=== PATIENT | female | born 1985 ===

== ENCOUNTER 2023-11-14 09:52 | Outpatient (CLI) | payer BC, SELFPAY ==
--- OUTSIDE RECORDS SUMMARY | 2023-11-14 10:01 | XMS_ITS | Clinical Summary ---
Author Organization [place] Address [address] [facility] [place] [address] Care Team Providers Care Digital Ad Trafficker Name Role Phone Khushi Slater MD Primary Care Provid er Allergies No known active allergies Medications Medication Sig Dispensed Refills Start Date End Date Status VITAMIN D, CHOLECALCIFEROL, PO Take by mouth daily Activ e ibuprofen (ADVIL/MOTRIN) 200 MG tabletIndications: Status post dilatation and curettage Take 3 tablets (600 mg) by mouth every 6 hours as needed for pain (mild) 30 tablet 09/12/2017 Active levothyroxine (SYNTHROID/LEVOTHR OID) 50 MCG tablet Take 50 mcg by mouth daily Active ibuprofen (ADVIL/MOTRIN) 600 MG tabletIndications: Endometrial polyp Take 1 tablet (600 mg) by mouth every 6 hours as needed for other (mild and/or inflammatory pain) 30 tablet 09/11/2019 Active Active Problems Problem Noted Date Diagnosed Date Endometrial polyp 09/01/2019 Miscarriage 09/12/2017 Status post dilatation and curettage 09/12/2017 Anemia 09/12/2017 Vaginal bleeding 09/11/2017 Encounters Date Type Department Care Team Description 10/12/[address] [place] [address] [place] [address] Veronica Duffy MD from Last 3 Months Social History Tobacco Use Types Packs/Day Years Used Date Smoking Tobacco: Never Smokeless Tobacco: Never Alcohol Use Standard Drinks/Week Comments No 0 (1 standard drink = 0.6 oz pur e alcohol) Adolescent Education Answer Date Record ed Getting School Help Needed Not on file 12/01 Sex and Gender Information Value Date Recorded Sex Assigned at Not on file Gender Identity Not on file Sexual Orientation Not on file Last Filed Vital Signs Vital Sign Reading Time Taken Comments Blood Pressure 109/67 09/11/2019 2:00 PM CDT Pulse 60 09/11/2019 1:45 PM CDT Temperature 35.6 ??C (96 ??F) 09/11/2019 1:45 PM CDT Respiratory Rate 16 09/11/2019 2:00 PM CDT Oxygen Saturation 98% 09/11/2019 2:00 PM CDT Inhaled Oxygen Concentration - - Weight 71.6 kg (157 lb 14.4 oz) 020 10:20 AM CDT Height 165.1 cm (5' 5) 09/11/2019 10:2 0 AM CDT Body Mass Index 26.28 09/11/2019 10:20 AM CDT Plan of Treatment Not on file Advance Directives For more information, please contact: [phone] * Full Code (Latest Code Status on File) Date Activated Date Inactivated Comments 09/12/2017 5:32 PM 09/13/2017 12:05 PM Care Teams Digital Ad Trafficker Relationship Specialty Start Date End Date Khushi Slater MD [address] [place] [address] PCP - General wire drawing setter 09/11/17
--- OUTSIDE RECORDS SUMMARY | 2023-11-14 10:02 | XMS_ITS | Referral Summary ---
Author Organization [place] Address [address] [place] [address] Care Team Providers Care Sales Operations Specialist Name Role Phone Khushi Slater MD Primary Care Provid er Encounters Date Type Department Care Team Description 10/12/2023 Telephone [facility] [address] [facility] [address] [place] [address] Veronica Duffy MD from Last 3 Months Allergies No known active allergies Medications Medication [...] curettage 09/12/2017 Anemia 09/12/2017 Vaginal bleeding 09/11/2017 Social History Tobacco Use Types Packs/Day Years [...] Advance Directives For more information, please contact: [phone] * Full Code (Latest Code Status on File) Date Activated Date Inactivated Comments 09/12/2017 5:32 PM 09/13/2017 12:05 PM Care Teams Sales Operations Specialist Relationship Specialty Start Date End Date Khushi Slater MD [address] [place] [id number] PCP - General frame runner 09/11/17
--- OUTSIDE RECORDS SUMMARY | 2023-11-14 10:02 | XMS_ITS | Encounter Summary ---
Author Organization [place] Address [address] [place] [address] Care Team Providers Care Immigration Judge Name Role Phone Khushi Slater MD Primary Care Provid er Encounter Details Date Type Department Care Team (Late st Contact Info) Description 10/12/2023 Telephone [facility] [address] [place] [address] Veronica Duffy MD [address] [place] [address] Social History Tobacco Use Types Packs/Day Years [...] on file Sexual Orientation Not on file documented as of this encounter Miscellaneous Notes * Telephone Encounter - Lucy Nash - 10/12/2023 11:31 AM CDT Reason for Call: Appointment Request Patient requesting this type of appt: Preventive Requested provider: Khushi Slater Reason patient unable to be scheduled: Needs to be scheduled by clinic When does patient want to be seen/preferred time: eloy Comments: patient called and would like an appt with only Dr Veronica Duffy at [facility] Reason: Physical. Est new care. If no. Female at [place] preferred. Please contact patient. Thank you. Could we send this information to you in Discoverlyhart or would you prefer to receive a phone call?: Patient would prefer a phone call Okay to leave a detailed message?: Yes at Cell number on file: Telephone Information: Call taken on 10/12/2023 at 11:31 AM by Lucy Nash documented in this encounter Plan of Treatment Not on file documented as of this encounter Visit Diagnoses Not on filedocumented in this encounter Care Teams Immigration Judge Relationship Specialty Start Date End Date Khushi Slater MD [address] [facility] [address] [place] [address] PCP - General stonemason helper 09/11/17 documented as of this encounter
== END 2023-11-14 09:53 | disposition home or self-care (01) ==
PROVIDERS: PCP Family Medicine; Visit Provider Family Medicine
DX: E55.9 Vitamin D deficiency, unspecified (principal); N92.0 Excessive and frequent menstruation with regular cycle; D64.9 Anemia, unspecified; R53.83 Other fatigue; Z13.220 Encounter for screening for lipoid disorders; Z13.29 Encounter for screening for other suspected endocrine disorder
CPT/HCPCS: 80053; 80061; 82306; 82607; 82728; 83021; 83540; 83550; 84443

== ENCOUNTER 2023-12-14 08:10 | Outpatient (CLI) | payer BC, SELFPAY ==
--- OUTSIDE RECORDS SUMMARY | 2023-12-14 11:01 | XMS_ITS | Referral Summary ---
Author Organization [place] Address [address] [place] [address] Care Team Providers Care Lumber Sticker Name Role Phone Yajaira Woo MD Primary Care Provider + Encounters Date Type Department Care Team Description 12/04/2023 Telephone [facility] [place] [address] Jazmine Camp RN Results 12/03/2023 Travel 12/03/2023 8:50 AM CDT - 12/03/2023 9:50 AM CDT Emergency [facility] Emergency Dept [address] [place] [address] Cj Holcomb MD Microcytic anemia; Near syncope Discharge Disposition: Home or Self Care 10/12/2023 Telephone [facility] [address] [facility] [address] [place] [phone] Veronica Duffy MD from Last 3 Months [...] Sign Reading Time Taken Comments Blood Pressure 95/75 12/03/2023 9:45 AM CDT Pulse 63 12/03/2023 9:45 AM CDT Temperature 36.3 ??C (97.4 ??F) 12/03/2023 8:12 AM CD T Respiratory Rate 18 12/03/2023 8:12 AM CDT Oxygen Saturation 98% 12/03/2023 9:45 AM CDT Inhaled Oxygen Concentration - - Weight 70.7 kg (155 lb 13.8 oz) 12/03/2023 8:12 AM CDT Height 165.1 cm (5' 5) 12/03/2023 8:12 AM CDT Body Mass Index 25.94 12/03/2023 8:12 AM CDT Plan of Treatment Not on file Procedures Procedure Name Priority Date/Time Associated Diagnosis Comments HCG QUALITATIVE URINE STAT 12/03/2023 9:01 AM CDT ROUTINE UA WITH MICROSCOPIC REFLEX TO CULTURE STAT 12/03/2023 9:01 AM CDT EKG 12-LEAD, TRACING ONLY STAT 12/03/2023 8:18 AM CDT CBC WITH PLATELETS & DIFFERENTIAL STAT 12/03/2023 8:14 AM CDT RBC AND PLATELET MORPHOLOGY STAT 12/03/2023 8:14 AM CDT CBC WITH PLATELETS AND DIFFERENTIAL STAT 12/03/2023 8:14 AM CDT EXTRA BLOOD BANK PURPLE TOP TUBE STAT 12/03/2023 8:14 AM CDT EXTRA BLOOD BANK PURPLE TOP TUBE STAT 12/03/2023 8:14 AM CDT EXTRA RED TOP TUBE STAT 12/03/2023 8: 14 AM CDT EXTRA BLUE TOP TUBE STAT 12/03/2023 8 :14 AM CDT TROPONIN T, HIGH SENSITIVITY STAT 12/03/2023 8:14 AM CDT BASIC METABOLIC PANEL STAT 12/03/2023 8:14 AM CDT EXTRA TUBE STAT 12/03/2023 8:14 AM CDT from Last 3 Months Results * HCG qualitative urine (UPT) (12/03/2023 9:01 AM CDT) Pathologist [facility] hCG Urine Qualitative Negative Negative MISAEL 12/03/2023 9:19 AM CDT LABORATORY Comment:This test is for scr eening purposes. Results should be interpreted along with the clinical picture. Confirmation testing is available if warranted by ordering [id number], HCG Quantitative . Urine MID-STREAM URINE SPECIMEN / Unknown Non-blood Collection / Unknown 12/03/2023 9:01 AM CDT 12/03/2023 9:10 AM CDT Robi Valdez MD LAB - URINE ORDERABL ES [facility] [address] (1st floor, no room number) [place] [address], [facility] * (ABNORMAL) UA with Microscopic reflex to Culture (12/03/2023 9:01 AM CDT) Color Urine Straw Colorless, Straw, Light Yellow, Yellow 12/03/2023 9:41 AM CDT LABORATORY Appearance Urine Clear Clear 12/03/19 9:41 AM CDT LABORATORY Glucose Urine Negative Negative mg/dL 12/03/2023 9:41 AM CDT LABORATORY Bilirubin Urine Negative Negative 9:41 AM CDT LABORATORY Ketones Urine Negative Negative mg/dL 12/03/2023 9:41 AM CDT LABORATORY Specific Tow Urine 1.005 1.003 - 1.035 12/03/2023 9:41 AM CDT LABORATORY Blood Urine Negative Negative 12/03/2023 9:41 AM CDT LABORATORY pH Urine 7.0 5.0 - 7.0 12/03/2023 9:41 AM CDT LABORATORY Protein Albumin Urine Negative Negative mg/dL 12/03/2023 9:41 AM CDT LABORATORY Urobilinogen Urine Normal Normal, 2.0 mg/dL 12/03/2023 9:41 AM CDT LABORATORY Nitrite Urine Negative Negative 12/03/2023 9:41 AM CDT LABORATORY Leukocyte Esterase Urine Negative Negative 12/03/2023 9:41 AM CDT LABORATORY RBC Urine <1 <=2 /HPF 12/03/2023 9:41 AM CDT LABORATORY WBC Urine <1 <=5 /HPF 12/03/2023 9:41 AM CDT LABORATORY Squamous Epithelials Urine 2(H) <=1 /HPF 12/03/2023 9:41 AM CDT LABORATORY Urine MID-STREAM URINE SPECIMEN / Unknown Non-blood Collection / Unknown 12/03/2023 9:01 AM CDT 12/03/2023 9:10 AM CDT Narrative [facility] LABORATORY - 12/03/2023 9:41 AM CDT Urine Culture not indicated Robi Valdez MD LAB - URINE ORDERABL ES LABORATORY [facility] Acute Care Lab [address] [facility] Lab (1st floor, no room number) [place] [address], [facility] * EKG 12-lead, tracing only (12/03/2023 8:18 AM CDT) Systolic Blood Pressure mmHg RADIOLOGY RESULTS Diastolic Blood Pressure mmHg RADIOLOGY RESULTS Ventricular Rate 60 BPM RAD IOLOGY RESULTS Atrial Rate 60 BPM RADIOLOG Y RESULTS NE Interval 186 ms RADIOLOG Y RESULTS QRS Duration 78 ms RADIOLO GY RESULTS QT 398 ms RADIOLOGY RESULTS QTc 398 ms RADIOLOGY RESULTS P Acme 66 degrees RADIOLOGY RESULTS R AXIS 39 degrees RADIOLOGY RESULTS T Acme 30 degrees RADIOLOGY RESULTS Interpretation ECG Sinus rhythm Normal ECG No previous ECGs available Unconfirmed report - interpretation of this ECG is computer generated - see medical record for final interpretation Confirmed by - EMERGENCY ROOM, PHYSICIAN ([id number]), desk editor Gautam Durham ([id number]) on 12/03/2023 8:44:21 AM RADIOLOGY RESULTS 12/03/2023 8:18 AM CDT 12/03/2023 8:44 AM CDT Cj Holcomb MD ECG ORDERABLES RADIOLOGY RESULTS * Extra Blood Bank Purple Top Tube (12/03/2023 8:14 AM CDT) Only the most recent of2 resultswithin the time period is included. Hold Specimen [facility] 12/03/2023 9:31 AM CDT [facility] LABORATORY Blood BLOOD SPECIMEN / Unknown Venipuncture / Unknown 12/03/2023 8:14 AM CDT 12/03/2023 8:21 AM CDT Cj Holcomb MD LAB - BLOOD ORDER HARRY LABORATORY [facility] [address] Lab (1st floor, no room number) [place] [address], [facility] * Extra Red Top Tube (12/03/2023 8:14 AM CDT) Hold Specimen [facility] 12/03/2023 9:31 AM CDT LABORATORY Blood BLOOD SPECIMEN / Unknown Venipuncture / Unknown 12/03/2023 8:14 AM CDT 12/03/2023 8:22 AM CDT Cj Holcomb MD LAB - BLOOD ORDER [facility]ARR[facility] Lab [address] Lab (1st floor, no room number) [address] * Extra Blue Top Tube (12/03/2023 8:14 AM CDT) Hold Specimen [facility] 12/03/2023 9:31 AM CDT [facility] LABORATORY Blood BLOOD SPECIMEN / Unknown Venipuncture / Unknown 12/03/2023 8:14 AM CDT 12/03/2023 8:21 AM CDT Cj Holcomb MD LAB - BLOOD ORDER HARRY Performing Organization Address City/[facility]/ZIP Co de Phone Number [facility] Lab [address] Lab (1st floor, no room number) [address] * (ABNORMAL) RBC and Platelet Morphology (12/03/2023 8:14 AM CDT) RBC Morphology Confirmed RBC Indices 12/03/2023 11:35 AM CDT [facility] LAB[facility]AT[facility] Platelet Assessment Automated Count Confirmed. Platelet morphology is normal. Automated Count Confirmed. Platelet morphology is normal. MISAEL 12/03/2023 11:35 AM CDT [facility] LAB[facility]AT[facility] Elliptocytes Moderate(A) None Seen MISAEL 12/03/2023 11:35 AM CDT [facility] RBC Fragments Slight(A) None Seen MISAEL 12/03/2023 11:35 AM CDT [facility] LAB[facility] Target Cells Slight(A) None Seen MISAEL 12/03/2023 11:35 AM CDT [facility] Teardrop Cells Slight(A) None Seen MISAEL 12/03/2023 11:35 AM CDT [facility] Blood BLOOD SPECIMEN / Unknown Venipuncture / Unknown 12/03/2023 8:14 AM CDT 12/03/2023 8:22 AM CDT Cj Holcomb MD LAB - BLOOD ORDER [facility] LABORATORY [facility] [address] Lab (1st floor, no room number) [place] [address], [facility] * (ABNORMAL) CBC with platelets and differential (12/03/2023 8:14 AM CDT) WBC Count 7.3 4.0 - 11.0 10e3/uL 12/03/2023 11:35 AM CDT [facility] LAB[facility]ATORY RBC Count 4.82 3.80 - 5.20 10e6/uL 12/03/2023 11:35 AM CDT [facility] LAB[facility] Hemoglobin 9.2(L) 11.7 - 15.7 g/dL 12/03/2023 11:35 AM CDT [facility] LAB[facility] Hematocrit 33.0(L) 35.0 - 47.0 % 12/03/2023 11:35 AM CDT [facility] LAB[facility] MCV 69(L) 78 - 100 fL 12/03/2023 11:35 AM CDT [facility] MCH 19.1(L) 26.5 - 33.0 pg 12/03/2023 11:35 AM CDT [facility] MCHC 27.9(L) 31.5 - 36.5 g/dL 12/03/2023 11:35 AM CDT [facility] RDW 12/03/2023 11:35 AM CDT [facility] LAB[facility]AT[facility] Comment:Dimorphic Population -Unable to Calculate Platelet Count 255 150 - 450 10e3/uL 12/03/2023 11:35 AM CDT [facility] % Neutrophils 70 % 12/03/2023 11:35 AM CDT [facility] % Lymphocytes 23 % 12/03/2023 11:35 AM CDT [facility] % Monocytes 4 % 12/03/2023 11:35 AM CDT [facility] % Eosinophils 3 % 12/03/2023 11:35 AM CDT [facility] % Basophils 1 % 12/03/2023 11:35 AM CDT [facility] % Immature Granulocytes 0 % 12/03/2023 11:35 AM CDT [facility] LAB[facility] NRBCs per 100 WBC 0 <1 /100 024 11:35 AM CDT [facility] LAB[facility] Absolute Neutrophils 5.1 1.6 - 8.3 10e3/uL 12/03/2023 11:35 AM CDT [facility] LAB[facility] Absolute Lymphocytes 1.7 0.8 - 5.3 10e3/uL 12/03/2023 11:35 AM CDT [facility] LAB[facility] Absolute Monocytes 0.3 0.0 - 1.3 10e3/uL 12/03/2023 11:35 AM CDT [facility] LAB[facility] Absolute Eosinophils 0.2 0.0 - 0.7 10e3/uL 12/03/2023 11:35 AM CDT [facility] LAB[facility] Absolute Basophils 0.1 0.0 - 0.2 10e3/uL 12/03/2023 11:35 AM CDT [facility] LAB[facility] Absolute Immature Granulocytes 0.0 <=0.4 10e3/uL 12/03/2023 11:35 AM CDT [facility] LAB[facility]AT[facility] Absolute NRBCs 0.0 10e3/uL 12/03/2023 11:35 AM CDT [facility] Blood BLOOD SPECIMEN / Unknown Venipuncture / Unknown 12/03/2023 8:14 AM CDT 12/03/2023 8:22 AM CDT Cj Holcomb MD LAB - BLOOD ORDER [facility] LABORATORY [facility] [address] [facility] Lab (1st floor, no room number) [place] [address], [facility] * Troponin T, High Sensitivity (12/03/2023 8:14 AM CDT) Pathologist [facility] Troponin T, High Sensitivity <6 <=14 ng/L 12/03/2023 8:43 AM CDT [facility] LABORATORY Comment: Either a High Sensitivity Troponin T baseline (0 hours) value = 100 ng/L, or an increase in High Sensitivity Troponin T = 7 ng/L at 2 hours compared to 0 hours (2-0 hours), suggests myocardial injury, and urgent clinical attention is required. ?? If the 2-0 hours increase is <7 ng/L, a High Sensitivity Troponin T result above gender-specific reference ranges warrants further evaluation. Recommendations for further evaluation include correlation with clinical decision-making tool (e.g., HEART), a 3rd High Sensitivity Troponin T test 2 hours after the 2nd (a 20% change from baseline would represent concern), admission for observation, close PCC/cardiology follow-up, or urgent outpatient provocative testing. Blood BLOOD SPECIMEN / Unknown Venipuncture / Unknown 12/03/2023 8:14 AM CDT 12/03/2023 8:21 AM CDT Cj Holcomb MD LAB - BLOOD ORDER [facility] LABORATORY [facility] [address] Lab (1st floor, no room number) [place] [address] * (ABNORMAL) Basic metabolic panel (BMP) (12/03/2023 8:14 AM CDT) Sodium 137 135 - 145 mmol/L 12/03/2023 8:43 AM CDT LABORATORY Potassium 3.9 3.4 - 5.3 mmol/L 12/03/2023 8:43 AM CDT LABORATORY Chloride 103 98 - 107 mmol/L 12/03/2023 8:43 AM CDT LABORATORY Carbon Dioxide (CO2) 20(L) 22 - 29 mmol/L 12/03/2023 8:43 AM CDT LABORATORY Anion Gap 14 7 - 15 mmol/L 12/03/2023 8:43 AM CDT LABORATORY Urea Nitrogen 9.2 6.0 - 20.0 mg/dL 12/03/2023 8:43 AM CDT LABORATORY Creatinine 0.69 0.51 - 0.95 mg/dL 12/03/2023 8:43 AM CDT LABORATORY GFR Estimate >90 >60 mL/min/1.7 3m2 12/03/2023 8:43 AM CDT LABORATORY Comment:eGFR calculated usin g 2020 CKD-EPI equation. Calcium 8.6(L) 8.8 - 10.4 mg/dL 12/03/2023 8:43 AM CDT LABORATORY Comment:Reference intervals for this test were updated on 09/25/2023 to reflect our healthy population more accurately. There may be differences in the flagging of prior results with similar values performed with this method. Those prior results can be interpreted in the context of the updated reference intervals. Glucose 111(H) 70 - 99 mg/dL 12/03/2023 8:43 AM CDT LABORATORY Blood BLOOD SPECIMEN / Unknown Venipuncture / Unknown 12/03/2023 8:14 AM CDT 12/03/2023 8:21 AM CDT Cj Holcomb MD LAB - BLOOD ORDER HARRY [facility] [address] Lab (1st floor, no room number) [place] [address], [facility] from Last 3 Months Advance Directives For more information, please contact: [phone] * Full Code (Latest Code Status on File) Date Activated Date Inactivated Comments 09/12/2017 5:32 PM 09/13/2017 12:05 PM Care Teams Lumber Sticker Relationship Specialty Start Date End Date Yajaira Woo MD [facility] [address] [place] [address] PCP - General Family Medicine 12/03/23
--- OUTSIDE RECORDS SUMMARY | 2023-12-14 11:01 | XMS_ITS | Encounter Summary ---
Author Organization [place] Address [address] [place] [address] Care Team Providers Care Assistant Store Director Name Role Phone Khushi Slater MD Primary Care Provid er Yajaira Woo MD Primary Care Provider + Encounter Details Date Type Department Care Team (Late st Contact Info) Description 10/12/2023 Telephone [facility] [address] [place] [address] Veronica Duffy MD [address] [place] [address] Social History Tobacco Use Types [...] encounter Miscellaneous Notes * Telephone Encounter - CharityLucy - 10/12/2023 11:31 AM CDT Reason for Call: Appointment Request Patient requesting this type of appt: Preventive Requested provider: Khushi Slater Reason patient unable to be scheduled: Needs to be scheduled by clinic When does patient want to be seen/preferred time: eloy Comments: patient called and would like an appt with only Dr Veronica Duffy at [facility] Reason: Physical. Est new care. If no. [place] at [place] preferred. Please contact patient. Thank you. Could we send this information to you in EarLenshart or would you prefer to receive a [...] on filedocumented in this encounter Care Teams Assistant Store Director Relationship Specialty Start Date End Date Khushi Slater MD [address] [facility] [address] [place] [address] PCP - General shooter helper 09/11/17 12/02/23 Yajaira Woo MD [facility] [address] [place] [address] PCP - General Family Medicine 12/03/23 documented as of this encounter
--- OUTSIDE RECORDS SUMMARY | 2023-12-14 11:01 | XMS_ITS | Encounter Summary ---
Author Organization [place] Address [address] [place] [id number] Care Team Providers Care Director Of Health Care Marketing Name Role Phone Yajaira Woo MD Primary Care Provider + Reason for Visit * Reason Comments Hypotension Encounter Details Date Type Department Care Team (Late st Contact Info) Description 12/03/2023 8:50 AM CDT - 12/03/2023 9:50 AM CDT Emergency [facility] Emergency Dept [address] [place] [address] Cj Holcomb MD [facility] [address] [place], [place] [id number] Microcytic anemia; Near syncope Discharge Disposition: Home or Self Care Social History Tobacco Use Types Packs/Day Years [...] on file documented as of this encounter Last Filed Vital Signs Vital Sign Reading [...] Mass Index 25.94 12/03/2023 8:12 AM CDT documented in this encounter Discharge Instructions * Discharge Instructions* Cj Holcomb MD - 12/03/2023 9:43 AM CDT Discharge Instructions Syncope Syncope (fainting) is a sudden, short loss of consciousness (passing out spell). People will usually fall to the ground when they faint or slump over if seated. People may also shake when this happens, and it can sometimes be difficult to tell the difference between syncope and a seizure. At this time, your provider does not find a reason to suspect that your fainting spell is a sign of anything dangerous or life-threatening. However, sometimes the signs of serious illness do not show up right away. Generally, every Emergency Department visit should have a follow-up clinic visit with either a primary or a specialty clinic/provider. Please follow-up as instructed by your emergency provider today. Return to the Emergency Department if: You faint again. You have any significant bleeding. You have chest pain or a fast or irregular heartbeat. You feel short of breath. You cough up any blood. You have abdominal (belly) pain or unusual back pain. You have ongoing vomiting (throwing up) or diarrhea (loose stools). You have a black or tarry bowel movement, or blood in the stool or in your vomit. You have a fever over 101??F. You lose feeling or cannot move a part of your body or cannot talk normally. You are confused, have a headache, cannot see well, or have a seizure. DO NOT DRIVE. CALL 911 INSTEAD! What can I do to help myself? Follow any specific instructions that your provider discussed with you. If you feel light-headed, make sure to sit down right away, even if you have to sit on the floor. Follow up with your regular medical provider as discussed for further management. This may include lowering your blood pressure medications, insulin or other diabetic medications, checking your bloodsugar more frequently, and drinking more fluids, taking medicines for vomiting or diarrhea or getting up slower. If you were given a prescription for medicine here today, be sure to read all of the information (including the package insert) that comes with your prescription. This will include important information about the medicine, its side effects, and any warnings that you need to know about. The pharmacist who fills the prescription can provide more information and answer questions you may have about the medicine. If you have questions or concerns that the pharmacist cannot address, please call or return to the Emergency Department. Remember that you can always come back to the Emergency Department if you are not able to see your regular provider in the amount of time listed above, if you get any new symptoms, or if there is anything that worries you. * Attachments The following attachments cannot be sent through Care Everywhere. * Anemia: Iron Deficiency (Yemeni) * Menorrhagia (Y[place]i) documented in this encounter Medications at Time of Discharge Medication Sig Dispensed Refills Start Date End Date ibuprofen (ADVIL/MOTRIN) 200 MG tabletIndications:Stat us post dilatation and curettage Take 3 tablets (600 mg) by mouth every 6 hours as needed for pain (mild) 30 tablet 09/12/2017 ibuprofen (ADVIL/MOTRIN) 600 MG tabletIndications:Endo metrial polyp Take 1 tablet (600 mg) by mouth every 6 hours as needed for other (mild and/or inflammatory pain) 30 tablet 09/11/2019 levothyroxine (SYNTHROID/LEVOTHROID) 50 MCG tablet Take 50 mcg by mouth daily VITAMIN D, CHOLECALCIFEROL, PO Take by mouth daily documented as of this encounter ED Notes * Cj Holcomb MD - 12/03/2023 8:58 AM CDT Emergency Department Note History of Present Illness Chief Complaint Hypotension HPI Nicki Najera is a 38 year old female with a history of anemia who presents with dizziness and hypotension. She had a bowel movement this morning 3.5 hours ago and felt like she was blacking out andwas diaphoretic and dizzy. She felt this way while sitting down. No syncope, chest pain, or palpations. She feels shoulder discomfort and numbness in right foot. After 15 minutes she felt back to [facility]. She had a liquid IV and slept which improved symptoms. This is the third episode in four months. With these episodes she has diarrhea and then vomits 3-5 times and feels dizzy and unable toget up due to generalized weakness. Sleeping and liquid IV helps her return to normal. No diarrhea today. She has been taking iron supplements for two weeks and had loose stool. No vomiting today. Nounintentional loss, weight gain, or fevers. She has heavy menstrual cycles for 7-8 days and she uses 10 pads on her heaviest days. She is not currently menstruating. No recent bloody stools. She addsbecause of her iron she has black stool. She follows with [facility]. She has not seen her physicians in 2-3 years. She adds her hemoglobin was 7.7 19 days ago. Independent Historian None Review of External Notes None Past Medical History Medical History and Problem List Anemia Disorder of thyroid Endometrial polyp GERD PCOS Placenta previa Superficial thrombophlebitis of right upper extremity Medications Levothyroxine Surgical History section Dilation and curettage suction with ultrasound guidance Dilation and curettage, operative hysteroscopy with morcellator, combined Physical Exam Patient Vitals for the past 24 hrs: BP Temp Temp src Pulse Resp SpO2 Height Weight 12/03/23 0812 114/79 97.4 ??F (36.3 ??C) Temporal 70 18 99 % 1.651 m (5' 5) 70.7 kg (155 lb 13.8 oz) Physical Exam HEENT: Oropharynx is moist Eyes: Conjunctiva normal Neck: Supple, no meningismus. CV: Regular rate and rhythm. No murmurs, rubs or gallops. No unilateral leg swelling. 2+ radial pulses bilateral. No lower extremity edema. PULM: Clear to auscultation bilateral. No respiratory distress. Good air exchange. No rales or wheezing. No stridor. ABD: Soft, non-tender, non-distended. No pulsatile masses. No rebound, guarding or rigidity. MSK: No gross deformity to all four extremities. LYMPH: No cervical lymphadenopathy. NEURO: Alert & O x 3 Speech is clear. No tremor Good muscle tone, no atrophy. Skin: Warm, dry and intact. Psych: Mood is good and affect is appropriate. Diagnostics Lab Results Labs Ordered and Resulted from Time of ED Arrival to Time of ED Departure BASIC METABOLIC PANEL - Abnormal Result Value Sodium 137 Potassium 3.9 Chloride 103 Carbon Dioxide (CO2) 20 (*) Anion Gap 14 Urea Nitrogen 9.2 Creatinine 0.69 GFR Estimate >90 Calcium 8.6 (*) Glucose 111 (*) CBC WITH PLATELETS AND DIFFERENTIAL - Abnormal WBC Count 7.3 RBC Count 4.82 Hemoglobin 9.2 (*) Hematocrit 33.0 (*) MCV 69 (*) MCH 19.1 (*) MCHC 27.9 (*) RDW Platelet Count 255 NRBCs per 100 WBC 0 Absolute NRBCs 0.0 ROUTINE UA WITH MICROSCOPIC REFLEX TO CULTURE - Abnormal Color Urine Straw Appearance Urine Clear Glucose Urine Negative Bilirubin Urine Negative Ketones Urine Negative Specific [place] Urine 1.005 Blood Urine Negative pH Urine 7.0 Protein Albumin Urine Negative Urobilinogen Urine Normal Nitrite Urine Negative Leukocyte Esterase Urine Negative RBC Urine <1 WBC Urine <1 Squamous Epithelials Urine 2 (*) TROPONIN T, HIGH SENSITIVITY - Normal Troponin T, High Sensitivity <6 HCG QUALITATIVE URINE - Normal hCG Urine Qualitative Negative RBC AND PLATELET MORPHOLOGY EKG ECG taken at 0818, ECG read at 0945 Normal sinus rhythm Rate 60 bpm. TN interval 186 ms. QRS duration 78 ms. QT/QTc 398/398 ms. P-R-T axes 66 39 30. Independent Interpretation None ED Course Discussion of Management None ED Course ED Course as of 12/03/23 0947 SunDec 03, 2023 0931 I obtained the patient's history and examined as noted above. Additional Documentation None Medical Decision Making / Diagnosis [facility] Diagnoses: None MIPS None MDM Nicki Najera is a 38 year old female with a known history of iron deficiency is anemia secondary to manage menorrhagia presents with an episode of near syncope after having bowel movement. EKG is without dysrhythmia. She has no worsening of her anemia, acute electrolyte disturbance, hypoglycemia.She had no chest pain or shortness of breath to warrant concern for pulmonary embolism, aortic dissection, aortic aneurysm. No headache to suggest intracranial hemorrhage. Evaluation is most consistent with vasovagal process related to bowel movement. I believe this is exacerbated with her iron deficiency anemia. Patient was recently started on iron but has not seen gynecology to discuss treatment of her menorrhagia. Patient will be referred to gynecology for treatment options for menorrhagia. She is not currently menstruating at this time. Patient to follow-up with primary care physician to ensure resolution of symptoms. Disposition The patient was discharged. Diagnosis ICD-10-CM 1. Microcytic anemia D50.9 2. Near syncope R55 Scribe Disclosure: I Radha Ellis, am serving as a scribe at 9:02 AM on 12/03/2023 to document services personally performed by Cj Holcomb MD based on my observations and the provider's statements to me. Cj Holcomb MD Matthews, Jeremiah R, MD 12/03/23 1320 * Lilibeth Hodges, JEFFREY - 12/03/2023 8:12 AM CDT C/O hypotension and intermittent dizziness. Pt reports feeling as though she will black out with weakness, diaphoresis. Hx anemia and takes iron supplements. ABC in tact. A/OX4 documented in this encounter Plan of Treatment Not on file documented as of this encounter Procedures Procedure Name Priority Date/Time Associated Diagnosis Comments HCG QUALITATIVE URINE STAT 12/03/2023 9:01 AM CDT ROUTINE UA WITH MICROSCOPIC REFLEX TO CULTURE STAT 12/03/2023 9:01 AM CDT EKG 12-LEAD, TRACING ONLY STAT 12/03/2023 8:18 AM CDT EXTRA TUBE STAT 12/03/2023 8:14 AM CDT EXTRA BLOOD BANK PURPLE TOP TUBE STAT 12/03/2023 8:14 AM CDT EXTRA BLOOD BANK PURPLE TOP TUBE STAT 12/03/2023 8:14 AM CDT EXTRA RED TOP TUBE STAT 12/03/2023 8: 14 AM CDT EXTRA BLUE TOP TUBE STAT 12/03/2023 8 :14 AM CDT RBC AND PLATELET MORPHOLOGY STAT 12/03/2023 8:14 AM CDT CBC WITH PLATELETS AND DIFFERENTIAL STAT 12/03/2023 8:14 AM CDT TROPONIN T, HIGH SENSITIVITY STAT 12/03/2023 8:14 AM CDT CBC WITH PLATELETS & DIFFERENTIAL STAT 12/03/2023 8:14 AM CDT BASIC METABOLIC PANEL STAT 12/03/2023 8:14 AM CDT documented in this encounter Results * HCG qualitative urine (UPT) (12/03/2023 9:01 AM CDT) hCG Urine Qualitative Negative Negative MISAEL 12/03/2023 9:19 AM CDT [facility] Comment:This test is for scr eening purposes. Results should be interpreted along with the clinical picture. Confirmation testing is available if warranted by ordering [id number], HCG Quantitative . Urine MID-STREAM URINE SPECIMEN / Unknown Non-blood Collection / Unknown 12/03/2023 9:01 AM CDT 12/03/2023 9:10 AM CDT Robi Valdez MD LAB - URINE ORDERABL ES LABORAT[facility] Acute Care Lab [address] [facility] Lab (1st floor, no room number) [place] [address], [facility] * (ABNORMAL) UA with Microscopic reflex to Culture (12/03/2023 9:01 AM CDT) Color Urine Straw Colorless, Straw, Light Yellow, Yellow 12/03/2023 9:41 AM CDT LABORATORY Appearance Urine Clear Clear 12/03/19 9:41 AM CDT LABORATORY Glucose Urine Negative Negative mg/dL 12/03/2023 9:41 AM CDT [facility] Bilirubin Urine Negative Negative 9:41 AM CDT [facility] Ketones Urine Negative Negative mg/dL 12/03/2023 9:41 AM CDT [facility] Specific Wing Urine 1.005 1.003 - 1.035 12/03/2023 9:41 AM CDT [facility] Blood Urine Negative Negative 12/03/2023 9:41 AM CDT [facility] pH Urine 7.0 5.0 - 7.0 12/03/2023 9:41 AM CDT [facility] Protein Albumin Urine Negative Negative mg/dL 12/03/2023 9:41 AM CDT [facility] Urobilinogen Urine Normal Normal, 2.0 mg/dL 12/03/2023 9:41 AM CDT [facility] Nitrite Urine Negative Negative 12/03/2023 9:41 AM CDT [facility] Leukocyte Esterase Urine Negative Negative 12/03/2023 9:41 AM CDT [facility] RBC Urine <1 <=2 /HPF 12/03/2023 9:41 AM CDT [facility] WBC Urine <1 <=5 /HPF 12/03/2023 9:41 AM CDT [facility] Squamous Epithelials Urine 2(H) <=1 /HPF 12/03/2023 9:41 AM CDT [facility] Urine MID-STREAM URINE SPECIMEN / Unknown Non-blood Collection / Unknown 12/03/2023 9:01 AM CDT 12/03/2023 9:10 AM CDT Narrative [facility] - 12/03/2023 9:41 AM CDT Urine Culture not indicated Robi Valdez MD LAB - URINE ORDERABL ES LABORATORY [facility] Care Lab [address] Lab (1st floor, no room number) [place] [address], [facility] * EKG 12-lead, tracing only (12/03/2023 8:18 AM CDT) Systolic Blood Pressure mmHg RADIOLOGY RESULTS Diastolic Blood Pressure mmHg RADIOLOGY RESULTS Ventricular Rate 60 BPM RAD IOLOGY RESULTS Atrial Rate 60 BPM RADIOLOG Y RESULTS TN Interval 186 ms RADIOLOG Y RESULTS QRS Duration 78 ms RADIOLO GY RESULTS QT 398 ms RADIOLOGY RESULTS QTc 398 ms RADIOLOGY RESULTS P [place] 66 degrees RADIOLOGY RESULTS R AXIS 39 degrees RADIOLOGY RESULTS T [place] 30 degrees RADIOLOGY RESULTS Interpretation ECG Sinus rhythm Normal ECG No previous ECGs available Unconfirmed report - interpretation of this ECG is computer generated - see medical record for final interpretation Confirmed by - EMERGENCY ROOM, PHYSICIAN ([id number]), telegraph editor Gautam Durham ([id number]) on 12/03/2023 8:44:21 AM RADIOLOGY RESULTS 12/03/2023 8:18 AM CDT 12/03/2023 8:44 AM CDT Cj Holcomb MD ECG ORDERABLES RADIOLOGY RESULTS * (ABNORMAL) RBC and Platelet Morphology (12/03/2023 [...] Holcomb MD LAB - BLOOD ORDER HARRY [facility] Care Lab [address] Lab (1st floor, no room number) [place] [address], [facility] * (ABNORMAL) CBC with platelets and differential [...] Holcomb MD LAB - BLOOD ORDER HARRY [facility] Lab [address] [facility] Lab (1st floor, no room number) [address] * Extra Blood Bank Purple Top Tube (12/03/2023 8:14 AM CDT) Hold Specimen [facility] 12/03/2023 9:31 AM CDT [facility] Blood BLOOD SPECIMEN / Unknown Venipuncture / Unknown 12/03/2023 8:14 AM CDT 12/03/2023 8:21 AM CDT Cj Holcomb MD LAB - BLOOD ORDER HARRY [facility] Lab [address] Lab (1st floor, no room number) [address] * Extra Blood Bank Purple Top Tube (12/03/2023 8:14 AM CDT) Hold Specimen [facility] 12/03/2023 9:31 AM CDT [facility] Blood BLOOD SPECIMEN / Unknown Venipuncture / Unknown 12/03/2023 8:14 AM CDT 12/03/2023 8:22 AM CDT Cj Holcomb MD LAB - BLOOD ORDER HARRY [facility] Acute Care Lab [address] Lab (1st floor, no room number) [place] [address] * Extra Red Top Tube (12/03/2023 8:14 AM CDT) Hold Specimen [facility] 12/03/2023 9:31 AM CDT LABORATORY Blood BLOOD SPECIMEN / Unknown Venipuncture / Unknown 12/03/2023 8:14 AM CDT 12/03/2023 8:22 AM CDT Cj Holcomb MD LAB - BLOOD ORDER HARRY [facility] Acute Care Lab [address] Lab (1st floor, no room number) [place] [phone] * Extra Blue Top Tube (12/03/2023 8:14 AM CDT) Hold Specimen [facility] 12/03/2023 9:31 AM CDT LABORATORY Blood BLOOD SPECIMEN / Unknown Venipuncture / Unknown 12/03/2023 8:14 AM CDT 12/03/2023 8:21 AM CDT Cj Holcomb MD LAB - BLOOD ORDER HARRY [facility] Acute Care Lab [address] Lab (1st floor, no room number) [place] [phone] [place] [address] * Troponin T, High Sensitivity (12/03/2023 8:14 AM CDT) Troponin T, High Sensitivity <6 <=14 ng/L 12/03/2023 8:43 AM CDT LABORATORY Comment: Either a High Sensitivity Troponin [...] MD LAB - BLOOD ORDER HARRY LABORATORY [facility] Care Lab [address] [facility] Lab (1st floor, no room number) [place] [address], [facility] * (ABNORMAL) Basic metabolic panel (BMP) (12/03/2023 [...] MD LAB - BLOOD ORDER HARRY LABORATORY [facility] Lab [address] [facility] Lab (1st floor, no room number) [place] [address] documented in this encounter Visit Diagnoses Diagnosis Microcytic anemia Iron deficiency anemia, unspecified Near syncope Syncope and collapse documented in this encounter Care Teams Director Of Health Care Marketing Relationship Specialty Start Date End Date Yajaira Woo MD [facility] [address] [place] [address] PCP - General Family Medicine 12/03/23 documented as of this encounter
--- OUTSIDE RECORDS SUMMARY | 2023-12-14 11:01 | XMS_ITS | Encounter Summary ---
Author Organization [place] Address [address] [place] [address] Care Team Providers Care Machine Striper Name Role Phone Yajaira Woo MD Primary Care Provider + Encounter Details Date Type Department Care Team (Latest Contact Info) Description 12/03/2023 Travel Social History Tobacco Use Types Packs/Day Years [...] on file documented as of this encounter Plan of Treatment Not on file documented as of this encounter Visit Diagnoses Not on filedocumented in this encounter Care Teams Machine Striper Relationship Specialty Start Date End Date Yajaira Woo MD [facility] [address] [place] [address] PCP - General Family Medicine 12/03/23 documented as of this encounter
--- OUTSIDE RECORDS SUMMARY | 2023-12-14 11:01 | XMS_ITS | Encounter Summary ---
Author Organization [facility] Address [address] [place] [address] Care Team Providers Care Administrative Aide Name Role Phone Yajaira Woo MD Primary Care Provider + Reason for Visit * Reason Onset Date Comments Results 12/04/2023 Encounter Details Date Type Department Care Team (Late st Contact Info) Description 12/04/2023 Telephone [facility] Nurse Advisors [facility] [place] [address] Jazmine Camp RN Results Social History Tobacco Use Types Packs/Day Years [...] encounter Miscellaneous Notes * Telephone Encounter - Ajit Dickinson RN - 12/04/2023 1:19 PM CDT Patient returning call. Relayed below results. Advised patient notify her PCP of these results and that she was in the ED. Patient is able to see them in MyChart. Verbalized understanding. No additional questions. Ajit Dickinson RN [facility] Emergency Dept Lab Result RN * Telephone Encounter - Jazmine Camp RN - 12/04/2023 12:46 PM CDT [facility] Reason for call: Lab Result Notification Lab Result (including Rx patient on, if applicable). If culture, copy of lab report at bottom. Lab Result: RBC and platelet morphology Component Latest Ref Rng 12/03/2023 8:14 AM RBC Morphology Confirmed RBC Indices Platelet Morphology Automated Count Confirmed. Platelet morphology is normal. Automated Count Confirmed. Platelet morphology is normal. Elliptocytes None Seen Moderate ! RBC Fragments None Seen Slight ! Target Cells None Seen Slight ! Teardrop Cells None Seen Slight ! Legend: ! Abnormal Creatinine Level (mg/dl) Creatinine Date Value Ref Range Status 12/03/2023 0.69 0.51 - 0.95 mg/dL Final Creatinine clearance (ml/min), if applicable Serum creatinine: 0.69 mg/dL 12/03/23 0814 Estimated creatinine clearance: 108 mL/min Patient with history of anemia presented to [facility] ED on 12/03/2023 with dizziness and hypotension RN Recommendations/Instructions per [facility] ED lab result protocol: [facility] ED lab result protocol utilized: [facility] protocol Unable to reach patient/caregiver. Left voicemail message requesting a call back to [phone] between 9 a.m. and 5:30 p.m. for patient's ED/UC lab results. Letter pended to be sent via [employer]. Jazmine Camp RN documented in this encounter Plan of Treatment Not on file documented as of this encounter Visit Diagnoses Not on filedocumented in this encounter Care Teams Administrative Aide Relationship Specialty Start Date End Date Yajaira Woo MD [facility] [address] [address] PCP - General Family Medicine 12/03/23 documented as of this encounter
--- OUTSIDE RECORDS SUMMARY | 2023-12-14 11:01 | XMS_ITS | Clinical Summary ---
Author Organization [place] Address [address] [place] [address] Care Team Providers Care Stope Miner Name Role Phone Yajaira Woo MD Primary Care Provider + Allergies No known active allergies Medications Medication [...] Type Department Care Team Description 12/04/2023 Telephone [facility] Nurse Advisors [address] [place] [address] Jazmine Camp RN Results 12/03/2023 8:50 AM CDT - 12/03/2023 9:50 AM CDT Emergency [facility] Emergency Dept [address] [place] [address] Cj Holcomb MD Microcytic anemia; Near syncope Discharge Disposition: Home or Self Care 12/03/2023 Travel 10/12/2023 [facility] [address] [place] [phone] Veronica Duffy MD from Last 3 Months [...] 12/03/2023 8:12 AM CDT Plan of Treatment Health Maintenance Due Date Last Done Comments ADVANCE CARE PLANNING 1984 ANNUAL REVIEW OF HM ORDERS 1984 TSH W/FREE T4 REFLEX 1984 HIV SCREENING 05/11/1999 HEPATITIS C SCREENING 2002 HEPATITIS B IMMUNIZATION (1 of 3 - 19+ 3-dose series) 05/11/2003 PAP 2005 DTAP/TDAP/TD IMMUNIZATION (1 - Tdap) 2009 YEARLY PREVENTIVE VISIT 08/24/2021 08/25/19 21, 02/14/2019 PHQ-2 (once per calendar year) 2023 COVID-19 Vaccine ( - 2023-2 5 season) 2023 INFLUENZA VACCINE (#1) 2023 0, 02/04/2019 GLUCOSE 12/02/2026 12/03/2023, 09/13/2017, 09/12/2017 RSV VACCINE (1 - 1-dose 75+ series) 05/11/2059 HPV IMMUNIZATION Aged Out No longer e ligible based on patient's age to complete this topic MENINGITIS IMMUNIZATION Aged Out No l onger eligible based on patient's age to complete this topic Pneumococcal Vaccine: Pediatrics (0 to 5 Years) and At-Risk Patients (6 to 64 Years) Aged Out No longer eligible b ased on patient's age to complete this topic RSV MONOCLONAL ANTIBODY Aged Out No l onger eligible based on patient's age to complete this topic Procedures Procedure Name Priority Date/Time Associated Diagnosis [...] testing is available if warranted by ordering [id number], HCG Quantitative . Urine MID-STREAM URINE SPECIMEN / Unknown Non-blood Collection / Unknown 12/03/2023 9:01 AM CDT 12/03/2023 9:10 AM CDT Robi Valdez MD LAB - URINE ORDERABL ES LABORATORY [facility] Acute Care Lab [address] [facility] Lab (1st floor, no room number) [place] [address], [facility] * (ABNORMAL) UA with Microscopic reflex [...] mg/dL 12/03/2023 9:41 AM CDT LABORATORY Specific [place] Urine 1.005 1.003 - 1.035 12/03/2023 9:41 [...] MD LAB - URINE ORDERABL ES LABORATORY [facility] Acute Care Lab [address] [facility] Lab (1st floor, no room number) [place] [address] * EKG 12-lead, tracing only (12/03/2023 8:18 AM CDT) Systolic Blood Pressure mmHg RADIOLOGY RESULTS Diastolic Blood Pressure mmHg RADIOLOGY RESULTS Ventricular Rate 60 BPM RAD IOLOGY RESULTS Atrial Rate 60 BPM RADIOLOG Y RESULTS [place] Interval 186 ms RADIOLOG Y RESULTS QRS Duration 78 ms RADIOLO GY RESULTS QT 398 ms RADIOLOGY RESULTS QTc 398 ms RADIOLOGY RESULTS P [place] 66 degrees RADIOLOGY RESULTS R AXIS 39 degrees RADIOLOGY RESULTS T [place] 30 degrees RADIOLOGY RESULTS Interpretation ECG Sinus rhythm Normal ECG No previous ECGs available Unconfirmed report - interpretation of this ECG is computer generated - see medical record for final interpretation Confirmed by - EMERGENCY ROOM, PHYSICIAN ([id number]), editor dictionary Gautam Durham ([id number]) on 12/03/2023 8:44:21 AM RADIOLOGY RESULTS 12/03/2023 8:18 AM CDT 12/03/2023 8:44 AM CDT Cj Holcomb MD ECG ORDERABLES RADIOLOGY RESULTS * Extra Blood Bank Purple Top Tube (12/03/2023 8:14 AM CDT) Only the most recent of2 resultswithin the time period is included. Hold Specimen [facility] 12/03/2023 9:31 AM CDT [facility] LAB[facility] Blood BLOOD SPECIMEN / Unknown Venipuncture / Unknown 12/03/2023 8:14 AM CDT 12/03/2023 8:21 AM CDT Cj Holcomb MD LAB - BLOOD ORDER [facility] Lab [address] Lab (1st floor, no room number) [address] * Extra Red Top Tube (12/03/2023 8:14 AM CDT) Hold Specimen [facility] 12/03/2023 9:31 AM CDT [facility] LAB[facility]ATORY Blood BLOOD SPECIMEN / Unknown Venipuncture / Unknown 12/03/2023 8:14 AM CDT 12/03/2023 8:22 AM CDT Cj Holcomb MD LAB - BLOOD ORDER HARRY Performing Organization Address City/[facility]/ZIP Co de Phone Number [facility] Lab [address] Lab (1st floor, no room number) [address] * Extra Blue Top Tube (12/03/2023 8:14 AM CDT) Hold Specimen [facility] 12/03/2023 9:31 AM CDT RH LABORATORY Blood BLOOD SPECIMEN / Unknown Venipuncture / Unknown 12/03/2023 8:14 AM CDT 12/03/2023 8:21 AM CDT Cj Holcomb MD LAB - BLOOD ORDER HARRY LABORATORY [facility] Acute Care Lab [address] Lab (1st floor, no room number) [place] [address] * (ABNORMAL) RBC and Platelet Morphology (12/03/2023 [...] MD LAB - BLOOD ORDER HARRY LABORATORY [facility] Acute Care Lab [address] Lab (1st floor, no room number) [place] [address] * (ABNORMAL) CBC with platelets and [...] - BLOOD ORDER HARRY Performing Organization Address City/[facility]/ZIP Co de Phone Number [facility] Acute Care Lab [address] Lab (1st floor, no room number) [place] [phone] * Troponin T, High Sensitivity (12/03/2023 [...] - BLOOD ORDER HARRY Performing Organization Address City/[facility]/ZIP Co de Phone Number [facility] Acute Care Lab [address] Lab (1st floor, no room number) [place] [address], [facility] * (ABNORMAL) Basic metabolic panel (BMP) (12/03/2023 8:14 AM CDT) Sodium 137 135 - 145 mmol/L 12/03/2023 8:43 AM CDT LABORATORY Potassium 3.9 3.4 - 5.3 mmol/L 12/03/2023 8:43 AM CDT RH LABORATORY Chloride 103 98 - 107 mmol/L 12/03/2023 8:43 AM CDT RH LABORATORY Carbon Dioxide (CO2) 20(L) 22 - 29 mmol/L 12/03/2023 8:43 AM CDT RH LABORATORY Anion Gap 14 7 - 15 mmol/L 12/03/2023 8:43 AM CDT RH LAB[facility]ATORY Urea Nitrogen 9.2 6.0 - 20.0 mg/dL 12/03/2023 8:43 AM CDT RH LABORATORY Creatinine 0.69 0.51 - 0.95 mg/dL 12/03/2023 8:43 AM CDT RH LAB[facility]ORY GFR Estimate >90 >60 mL/min/1.7 3m2 12/03/2023 8:43 AM CDT [facility] LAB[facility]ORY Comment:eGFR calculated usin 2020 CKD-EPI equation. Calcium 8.6(L) 8.8 - 10.4 mg/dL 12/03/2023 8:43 AM CDT [facility] LAB[facility]ATORY Comment:Reference intervals for this test were updated on 09/25/2023 to reflect our healthy population more accurately. There may be differences in the flagging of prior results with similar values performed with this method. Those prior results can be interpreted in the context of the updated reference intervals. Glucose 111(H) 70 - 99 mg/dL 12/03/2023 8:43 AM CDT RH LAB[facility]ORY Blood BLOOD SPECIMEN / Unknown Venipuncture / Unknown 12/03/2023 8:14 AM CDT 12/03/2023 8:21 AM CDT Cj Holcomb MD LAB - BLOOD ORDER HARRY [facility] LABORATORY [facility] Acute Care Lab [address] Lab (1st floor, no room number) [place] [address], [facility] from Last 3 Months Advance Directives For more information, please contact: [phone] * Full Code (Latest Code Status on File) Date Activated Date Inactivated Comments 09/12/2017 5:32 PM 09/13/2017 12:05 PM Care Teams Stope Miner Relationship Specialty Start Date End Date Yajaira Woo MD [facility] & [address] [address] PCP - General Family Medicine 12/03/23
== END 2023-12-14 08:11 | disposition home or self-care (01) ==
LOC: NFLDREF 10:58
PROVIDERS: Visit Provider Family Medicine
DX: D50.9 Iron deficiency anemia, unspecified (principal); D50.0 Iron deficiency anemia secondary to blood loss (chronic); E53.8 Deficiency of other specified B group vitamins; R53.83 Other fatigue; E55.9 Vitamin D deficiency, unspecified; R71.8 Other abnormality of red blood cells
CPT/HCPCS: 82728; 85045

== ENCOUNTER 2024-01-04 08:00 | Outpatient (CLI) | payer BC, SELFPAY ==
--- OUTSIDE RECORDS SUMMARY | 2024-01-05 14:34 | XMS_ITS | Encounter Summary ---
Author Organization [place] Address [address] [place] [address] Care Team Providers Care Certified Tower Climber Name Role Phone Yajaira Woo MD Primary Care Provider + Reason for Visit * Reason Comments Hypotension Encounter Details Date Type Department Care Team (Late st Contact Info) Description 12/03/2023 8:50 AM CDT - 12/03/2023 9:50 AM CDT Emergency [facility] Emergency Dept [address] [place] [address] Cj Holcomb MD [facility] [address] [place], [place] [phone] Microcytic anemia; Near syncope Discharge Disposition: Home or Self Care Social History Tobacco Use Types Packs/Day Years Used Date Smoking Tobacco: Never Smokeless Tobacco: Never Alcohol Use Standard Drinks/Week Comments No 0 (1 standard drink = 0.6 oz pur e alcohol) Adolescent Education Answer Date Record ed Getting School Help Needed Not on file 12/01 Comments Unknown Sex and Gender Information Value Date Recorded Sex Assigned at Not on file Legal Sex Female 10:18 PM CDT Gender Identity Not on file Sexual Orientation [...] through Care Everywhere. * Anemia: Iron Deficiency (Frisian) * Menorrhagia (Frisian) documented in this encounter Medications at Time of Discharge ibuprofen (ADVIL/MOTRIN) 200 MG tabletIndication s:Status post dilatation and curettage Take 3 tablets (600 mg) by mouth every 6 hours as needed for pain (mild) 30 tablet 09/12/2017 ibuprofen (ADVIL/MOTRIN) 600 MG tabletIndication s:Endometrial polyp Take 1 tablet (600 mg) by mouth every 6 hours as needed for other (mild and/or inflammatory pain) 30 tablet 09/11/2019 levothyroxine (SYNTHROID/LEVOT HROID) 50 MCG tablet Take 50 mcg by [...] After 15 minutes [facility] She had a liquid IV and slept [...] Bilirubin Urine Negative Ketones Urine Negative Specific [place] Urine 1.005 Blood Urine Negative pH Urine [...] 0945 Normal sinus rhythm Rate 60 bpm. [place] interval 186 ms. QRS duration 78 ms. QT/QTc 398/398 ms. P-R-T axes 66 39 30. Independent Interpretation None ED Course Discussion of Management None ED Course ED Course as of 12/03/23 0947 SunDec 03, 2023 0931 I obtained the patient's history and examined as noted above. Additional Documentation None Medical Decision Making / Diagnosis [facility] Diagnoses: None MIPS None MDM [...] D50.9 2. Near syncope R55 Scribe Disclosure: I, Radharodney Ellis, am serving as a scribe at 9:02 AM on 12/03/2023 to document services personally performed by Cj Holcomb MD based on my observations and the provider's statements to me. Cj Holcomb MD Matthews, Jeremiah R, MD 12/03/23 1320 * Lilibeth Hodges RN - 12/03/2023 8:12 AM CDT C/O hypotension [...] testing is available if warranted by ordering [id number], HCG Quantitative . Urine MID-STREAM URINE SPECIMEN / Unknown Non-blood Collection / Unknown 12/03/2023 9:01 AM CDT 12/03/2023 9:10 AM CDT Robi Valdez MD LAB - URINE ORDERABLES Final Result LABORATORY [facility] Acute Care Lab [address] [facility] Lab (1st floor, no room number) [place] [address], [facility] * (ABNORMAL) UA with Microscopic reflex to Culture (12/03/2023 9:01 AM CDT) Color Urine Straw Colorless, Straw, Light Yellow, Yellow 12/03/2023 9:41 AM CDT LABORATORY Appearance Urine Clear Clear 09/23/20 24 9:41 AM CDT RH LABORATORY Glucose Urine Negative Negative mg/dL 12/03/2023 9:41 AM CDT RH LABORATORY Bilirubin Urine Negative Negative 9:41 AM CDT RH LABORATORY Ketones Urine Negative Negative mg/dL 12/03/2023 9:41 AM CDT RH LABORATORY Specific [place] Urine 1.005 1.003 - 1.035 12/03/2023 9:41 [...] 9:41 AM CDT Urine Culture not indicated us Robi Valdez MD LAB - URINE ORDERABLES Final Result LABORATORY [facility] Acute Care Lab [address] Lab (1st floor, no room number) [place] [address], [facility] * EKG 12-lead, tracing only (12/03/2023 8:18 AM CDT) Systolic Blood Pressure mmHg RADIOLOGY RESULTS Diastolic Blood Pressure mmHg RADIOLOGY RESULTS Ventricular Rate 60 BPM RAD IOLOGY RESULTS Atrial Rate 60 BPM RADIOLOG Y RESULTS [place] Interval 186 ms RADIOLOG Y RESULTS QRS Duration 78 ms RADIOLO GY RESULTS QT 398 ms RADIOLOGY RESULTS QTc 398 ms RADIOLOGY RESULTS P [place] 66 degrees RADIOLOGY RESULTS R AXIS 39 degrees RADIOLOGY RESULTS T [place] 30 degrees RADIOLOGY RESULTS Interpretation ECG Sinus rhythm Normal ECG No previous ECGs available Unconfirmed report - interpretation of this ECG is computer generated - see medical record for final interpretation Confirmed by - EMERGENCY ROOM, PHYSICIAN ([id number]), video editor Gautam Durham ([id number]) on 12/03/2023 8:44:21 AM RADIOLOGY RESULTS 12/03/2023 8:18 AM CDT 12/03/2023 8:44 AM CDT us Cj Holcomb MD ECG ORDERABLES Edited Re sult - Final RADIOLOGY RESULTS * (ABNORMAL) RBC and Platelet Morphology (12/03/2023 8:14 AM CDT) RBC Morphology Confirmed RBC Indices 12/03/2023 11:35 AM CDT RH LABORATORY Platelet Assessment Automated Count Confirmed. Platelet morphology is normal. Automated Count Confirmed. Platelet morphology is normal. MSIAEL 12/03/2023 11:35 AM CDT RH LABORATORY Elliptocytes [...] CDT Cj Holcomb MD LAB - BLOOD ORDERABLES Fi nal Result RH LABORATORY [facility] Acute Care Lab [address] Lab (1st floor, no room number) [place] [address], [place] * (ABNORMAL) CBC with platelets and differential (12/03/2023 8:14 AM CDT) [facility] Signature WBC Count 7.3 4.0 - 11.0 10e3/uL [...] CDT Cj Holcomb MD LAB - BLOOD ORDERABLES Fi nal Result [facility] Lab [address] Lab (1st floor, no room number) [address] * Extra Blood Bank Purple Top Tube (12/03/2023 8:14 AM CDT) Hold Specimen [facility] 12/03/2023 9:31 AM CDT RH LABORATORY Blood BLOOD SPECIMEN / Unknown Venipuncture / Unknown 12/03/2023 8:14 AM CDT 12/03/2023 8:21 AM CDT Cj Holcomb MD LAB - BLOOD ORDERABLES Fi nal Result [facility] Lab [address] Lab (1st floor, no room number) [address] * Extra Blood Bank Purple Top Tube (12/03/2023 8:14 AM CDT) Hold Specimen [facility] 12/03/2023 9:31 AM CDT RH LABORATORY Blood BLOOD SPECIMEN / Unknown Venipuncture / Unknown 12/03/2023 8:14 AM CDT 12/03/2023 8:22 AM CDT us Cj Holcomb MD LAB - BLOOD ORDERABLES Fi nal Result [facility] Care Lab [address] Lab (1st floor, no room number) [address] [place] [address] * Extra Red Top Tube (12/03/2023 8:14 AM CDT) Hold Specimen [facility] 12/03/2023 9:31 AM CDT LABORATORY Blood BLOOD SPECIMEN / Unknown Venipuncture / Unknown 12/03/2023 8:14 AM CDT 12/03/2023 8:22 AM CDT us Cj Holcomb MD LAB - BLOOD ORDERABLES Fi nal Result Performing Organization Address City/[facility]/ZIP Co de Phone Number [facility] Lab [address] Lab (1st floor, no room number) [place] [phone] [place] [address] * Extra Blue Top Tube (12/03/2023 8:14 AM CDT) Hold Specimen [facility] 12/03/2023 9:31 AM CDT LABORATORY Blood BLOOD SPECIMEN / Unknown Venipuncture / Unknown 12/03/2023 8:14 AM CDT 12/03/2023 8:21 AM CDT Cj Holcomb MD LAB - BLOOD ORDERABLES Fi nal Result [facility] Lab [address] Lab (1st floor, no room number) [address] [place] [address] * Troponin T, High Sensitivity (12/03/2023 8:14 AM CDT) Pathologist [facility] Troponin T, High Sensitivity <6 <=14 ng/L [...] 8:14 AM CDT 12/03/2023 8:21 AM CDT us Cj Holcomb MD LAB - BLOOD ORDERABLES Fi nal Result LABORATORY [facility] Acute Care Lab [address] [facility] Lab (1st floor, no room number) [place] [address], [facility] * (ABNORMAL) Basic metabolic panel (BMP) [...] 8:43 AM CDT RH LABORATORY Comment:eGFR calculated us2020 CKD-EPI equation. Calcium 8.6(L) 8.8 - 10.4 [...] CDT Cj Holcomb MD LAB - BLOOD ORDERABLES Fi nal Result LABORATORY [facility] Acute Care Lab [address] Lab (1st floor, no room number) [place] [address], [facility] documented in this encounter Visit Diagnoses Diagnosis Microcytic anemia Iron deficiency anemia, unspecified Near syncope Syncope and collapse documented in this encounter Care Teams Certified Tower Climber Relationship Specialty Start Date End Date Yajaira Woo MD [facility] & [address] [address] PCP - General Family Medicine 12/03/23 documented as of this encounter
--- OUTSIDE RECORDS SUMMARY | 2024-01-05 14:34 | XMS_ITS | Encounter Summary ---
Author Organization [place] Address [address] [place] [address] Care Team Providers Care Executive Manager Name Role Phone Khushi Slater MD Primary Care Provid er Yajaira Woo MD Primary Care Provider + Encounter Details Date Type Department Care Team (Late st Contact Info) Description 10/12/2023 Telephone [facility] [address] [place] [address] Veronica Duffy MD [address] [place] [address] Social History Tobacco Use Types [...] appt with only Dr Veronica Duffy at [facility] Reason: Physical. Est new care. If no. Female at [place] preferred. Please contact patient. Thank you. Could we send this information to you in [employer] or would you prefer to receive a [...] on filedocumented in this encounter Care Teams Executive Manager Relationship Specialty Start Date End Date Khushi Slater MD [address] [facility] [address] [address] PCP - General hand roller engraver 09/11/17 12/02/23 Yajaira Woo MD [facility] [address] [place] [address] PCP - General Family Medicine 12/03/23 documented as of this encounter
--- OUTSIDE RECORDS SUMMARY | 2024-01-05 14:34 | XMS_ITS | Referral Summary ---
Author Organization [place] Address [address] [place] [address] Care Team Providers Care Diving Instructor Name Role Phone Yajaira Woo MD Primary Care Provider + Encounters Date Type Department Care Team Description 12/04/2023 Telephone [facility] Nurse Advisors [facility] [place] [address] Jazmine Camp RN Results 12/03/2023 Travel 12/03/2023 8:50 AM CDT - 12/03/2023 9:[address] [facility] Emergency Dept [address] [place] [address] Cj Holcomb MD Microcytic anemia; Near syncope Discharge Disposition: Home or Self Care 10/12/2023 Telephone [facility] [address] [place] [phone] Veronica Duffy MD from Last 3 Months Allergies No known active allergies Medications VITAMIN D, CHOLECALCIFEROL , PO Take by mouth daily Active ibuprofen (ADVIL/MOTRIN) 200 MG tabletIndicatio ns:Status post dilatation and curettage Take 3 tablets (600 mg) by mouth every 6 hours as needed for pain (mild) 30 tablet 8 Active levothyroxine (SYNTHROID/LEVO THROID) 50 MCG tablet Take 50 mcg by mouth daily Active ibuprofen (ADVIL/MOTRIN) 600 MG tabletIndicatio ns:Endometrial polyp Take 1 tablet (600 mg) by mouth every 6 hours as needed for other (mild and/or inflammatory pain) 30 tablet 0 Active Active Problems Problem Noted Date Diagnosed [...] testing is available if warranted by ordering [id number], HCG Quantitative . Urine MID-STREAM URINE SPECIMEN / Unknown Non-blood Collection / Unknown 12/03/2023 9:01 AM CDT 12/03/2023 9:10 AM CDT Robi Valdez MD LAB - URINE ORDERABLES Final Result LABORATORY [facility] Acute Care Lab [address] Lab (1st floor, no room number) [place] [address], [place] * (ABNORMAL) UA with Microscopic reflex to Culture (12/03/2023 9:01 AM CDT) Color Urine Straw Colorless, Straw, Light Yellow, Yellow 12/03/2023 9:41 AM CDT LABORATORY Appearance Urine Clear Clear 12/03/19 9:41 AM CDT LABORATORY Glucose Urine Negative Negative mg/dL 12/03/2023 9:41 AM CDT LABORATORY Bilirubin Urine Negative Negative 9:41 AM CDT LABORATORY Ketones Urine Negative Negative mg/dL 12/03/2023 9:41 AM CDT LABORATORY Specific [place] Urine 1.005 1.003 - 1.035 12/03/2023 9:41 [...] AM CDT 12/03/2023 9:10 AM CDT Narrative LABORATORY - 12/03/2023 9:41 AM CDT Urine Culture not indicated us Robi Valdez MD LAB - URINE ORDERABLES Final Result LABORATORY [facility] Acute Care Lab [address] Lab (1st floor, no room number) [place] [address] * EKG 12-lead, tracing only (12/03/2023 8:18 AM CDT) Systolic Blood Pressure mmHg RADIOLOGY RESULTS Diastolic Blood Pressure mmHg RADIOLOGY RESULTS Ventricular Rate 60 BPM RAD IOLOGY RESULTS Atrial Rate 60 BPM RADIOLOG Y RESULTS NM Interval 186 ms RADIOLOG Y RESULTS QRS Duration 78 ms RADIOLO GY RESULTS QT 398 ms RADIOLOGY RESULTS QTc 398 ms RADIOLOGY RESULTS P [place] 66 degrees RADIOLOGY RESULTS R AXIS 39 degrees RADIOLOGY RESULTS T [place] 30 degrees RADIOLOGY RESULTS Interpretation ECG Sinus rhythm Normal ECG No previous ECGs available Unconfirmed report - interpretation of this ECG is computer generated - see medical record for final interpretation Confirmed by - EMERGENCY ROOM, PHYSICIAN ([id number]), website/blog editor Gautam Durham ([id number]) on 12/03/2023 8:44:21 AM RADIOLOGY RESULTS 12/03/2023 8:18 AM CDT 12/03/2023 8:44 AM CDT Cj Holcomb MD ECG ORDERABLES Edited Re sult - Final RADIOLOGY RESULTS * Extra Blood Bank Purple Top Tube (12/03/2023 8:14 AM CDT) Only the most recent of2 resultswithin the time period is included. [facility] Signature Hold Specimen [facility] 12/03/2023 9:31 AM CDT [facility] LABORATORY Blood BLOOD SPECIMEN / Unknown Venipuncture / Unknown 12/03/2023 8:14 AM CDT 12/03/2023 8:21 AM CDT Cj Holcomb MD LAB - BLOOD ORDERABLES Fi nal Result LABORATORY [facility] Acute Care Lab [address] Lab (1st floor, no room number) [place] [address], [facility] * Extra Red Top Tube (12/03/2023 8:14 AM CDT) Hold Specimen [facility] 12/03/2023 9:31 AM CDT RH LABORATORY Blood BLOOD SPECIMEN / Unknown Venipuncture / Unknown 12/03/2023 8:14 AM CDT 12/03/2023 8:22 AM CDT Cj Holcomb MD LAB - BLOOD ORDERABLES Fi nal Result LABORATORY [facility] Care Lab [address] Lab (1st floor, no room number) [address] * Extra Blue Top Tube (12/03/2023 8:14 AM CDT) Hold Specimen [facility] 12/03/2023 9:31 AM CDT RH LABORATORY Blood BLOOD SPECIMEN / Unknown Venipuncture / Unknown 12/03/2023 8:14 AM CDT 12/03/2023 8:21 AM CDT Cj Holcomb MD LAB - BLOOD ORDERABLES Fi nal Result [facility] Lab [address] Lab (1st floor, no room number) [address] * (ABNORMAL) RBC and Platelet Morphology [...] BLOOD ORDERABLES Fi nal Result RH LABORATORY [facility] Acute Care Lab [address] Lab (1st floor, no room number) [place] [address], [facility] * (ABNORMAL) CBC with platelets and differential (12/03/2023 8:14 AM CDT) [facility] WBC Count 7.3 4.0 - 11.0 10e3/uL [...] - 0.7 10e3/uL 12/03/2023 11:35 AM CDT LABORATORY Absolute Basophils 0.1 0.0 - 0.2 10e3/uL 12/03/2023 11:35 AM CDT RH LABORATORY Absolute Immature Granulocytes 0.0 <=0.4 10e3/uL 12/03/2023 11:35 AM CDT RH LABORATORY Absolute NRBCs 0.0 10e3/uL 12/03/2023 11:35 AM CDT LABORATORY Blood BLOOD SPECIMEN / Unknown Venipuncture / Unknown 12/03/2023 8:14 AM CDT 12/03/2023 8:22 AM CDT Cj Holcomb MD LAB - BLOOD ORDERABLES Fi nal Result LABORATORY [facility] Acute Care Lab [address] [facility] Lab (1st floor, no room number) [place] [address], [facility] * Troponin T, High Sensitivity (12/03/2023 8:14 AM CDT) [facility] Troponin T, High Sensitivity <6 <=14 ng/L [...] - BLOOD ORDERABLES Fi nal Result LABORATORY [facility] Acute Care Lab [address] [facility] Lab (1st floor, no room number) [place] [address] * (ABNORMAL) Basic metabolic panel (BMP) [...] 8:43 AM CDT LABORATORY Comment:eGFR calculated usin 2020 CKD-EPI equation. [...] - BLOOD ORDERABLES Fi nal Result LABORATORY [facility] Acute Care Lab [address] [facility] Lab (1st floor, no room number) [place] [address], [facility] from Last 3 Months Insurance [facility] [place] [address] [facility] Advance Directives For more information, please contact: [phone] * Full Code (Latest Code Status on File) Date Activated Date Inactivated Comments 09/12/2017 5:32 PM 09/13/2017 12:05 PM Care Teams Diving Instructor Relationship Specialty Start Date End Date Yajaira Woo MD [facility] & [address] [address] PCP - General Family Medicine 12/03/23
--- OUTSIDE RECORDS SUMMARY | 2024-01-05 14:34 | XMS_ITS | Encounter Summary ---
Author Organization [place] Address [address] [place] [address] Care Team Providers Care Radio Engineer Name Role Phone Yajaira Woo MD Primary [...] on filedocumented in this encounter Care Teams Radio Engineer Relationship Specialty Start Date End Date Yajaira Woo MD [facility] [address] [place] [address] PCP - General Family Medicine 12/03/23 documented as of this encounter
--- OUTSIDE RECORDS SUMMARY | 2024-01-05 14:34 | XMS_ITS | Encounter Summary ---
Author Organization [place] Address [address] [place] [address] Care Team Providers Care Food And Nutrition Services Supervisor Name Role Phone Yajaira Woo MD Primary Care Provider + Reason for Visit * Reason Onset Date Comments Results 12/04/2023 Encounter Details Date Type Department Care Team (Late st Contact Info) Description 12/04/2023 Telephone [facility] Nurse Advisors [facility] [place] [address] Jazmine Camp RN Results Social [...] understanding. No additional questions. Ajit Dickinson RN [facility] [employer] [facility] Emergency Dept Lab Result RN * Telephone Encounter - Jazmine Camp RN - 12/04/2023 12:46 PM CDT [facility] Reason for call: Lab Result Notification Lab [...] Patient with history of anemia presented to [facility] ED on 12/03/2023 with dizziness and hypotension RN Recommendations/Instructions per [facility] ED lab result protocol: [facility] ED lab result protocol utilized: [facility] [place] Unable to reach patient/caregiver. Left voicemail message requesting a call back to [phone] between 9 a.m. and 5:30 p.m. for patient's ED/UC lab results. Letter pended to be sent via [employer]. Jazmine Camp RN documented in this encounter Plan of Treatment Not on file documented as of this encounter Visit Diagnoses Not on filedocumented in this encounter Care Teams Food And Nutrition Services Supervisor Relationship Specialty Start Date End Date Yajaira Woo MD [facility] & [address] [address] PCP - General Family Medicine 12/03/23 documented as of this encounter
--- OUTSIDE RECORDS SUMMARY | 2024-01-05 14:34 | XMS_ITS | Clinical Summary ---
Author Organization [place] Address [address] [place] [address] Care Team Providers Care Associate Product Manager Name Role Phone Yajaira Woo MD Primary Care Provider + Allergies No known active allergies Medications VITAMIN [...] Type Department Care Team Description 12/04/2023 Telephone [facility] Nurse Advisors [address] [place] [address] Jazmine Camp RN Results 12/03/2023 8:50 AM CDT - 12/03/2023 9:50 AM CDT Emergency [facility] Emergency Dept [address] [place] [address] Cj Holcomb MD Microcytic anemia; Near syncope Discharge Disposition: Home or Self Care 12/03/2023 Travel 10/12/2023 Telephone [facility] [address] [place] [address] Veronica Duffy MD from Last 3 Months [...] 5 season) 2023 INFLUENZA VACCINE (#1) 2023 , 02/04/2019 GLUCOSE 12/02/2026 12/03/2023, 09/13/2017, 09/12/2017 RSV [...] testing is available if warranted by ordering [id number], HCG Quantitative . Urine MID-STREAM URINE SPECIMEN / Unknown Non-blood Collection / Unknown 12/03/2023 9:01 AM CDT 12/03/2023 9:10 AM CDT us Robi Valdez MD LAB - URINE ORDERABLES Final Result LABORATORY [facility] Acute Care Lab [address] [facility] Lab (1st floor, no room number) [place] [address] * (ABNORMAL) UA with Microscopic reflex to Culture (12/03/2023 9:01 AM CDT) Color Urine Straw Colorless, Straw, Light Yellow, Yellow 12/03/2023 9:41 AM CDT LABORATORY Appearance Urine Clear Clear 12/03/19 9:41 AM CDT RH LABORATORY Glucose Urine Negative Negative mg/dL 12/03/2023 9:41 AM CDT LABORATORY Bilirubin Urine Negative Negative 9:41 AM CDT RH LABORATORY Ketones Urine Negative Negative mg/dL 12/03/2023 9:41 AM CDT RH LABORATORY Specific [place] Urine 1.005 1.003 - 1.035 12/03/2023 9:41 [...] LAB - URINE ORDERABLES Final Result LABORATORY [facility] Acute Care Lab [address] Lab (1st floor, no room number) [place] [address], [facility] * EKG 12-lead, tracing only (12/03/2023 8:18 AM CDT) Systolic Blood Pressure mmHg RADIOLOGY RESULTS Diastolic Blood Pressure mmHg RADIOLOGY RESULTS Ventricular Rate 60 BPM RAD IOLOGY RESULTS Atrial Rate 60 BPM RADIOLOG Y RESULTS [place] Interval 186 ms RADIOLOG Y RESULTS QRS Duration 78 ms RADIOLO GY RESULTS QT 398 ms RADIOLOGY RESULTS QTc 398 ms RADIOLOGY RESULTS P [place] 66 degrees RADIOLOGY RESULTS R AXIS 39 degrees RADIOLOGY RESULTS T [place] 30 degrees RADIOLOGY RESULTS Interpretation ECG Sinus rhythm Normal ECG No previous ECGs available Unconfirmed report - interpretation of this ECG is computer generated - see medical record for final interpretation Confirmed by - EMERGENCY ROOM, PHYSICIAN ([id number]), newspaper or periodical editor Gautam Durham ([id number]) on 12/03/2023 8:44:21 AM RADIOLOGY RESULTS 12/03/2023 8:18 AM CDT 12/03/2023 8:44 AM CDT Cj Holcomb MD ECG ORDERABLES Edited Re sult - Final RADIOLOGY RESULTS * Extra Blood Bank Purple Top Tube (12/03/2023 8:14 AM CDT) Only the most recent of2 resultswithin the time period is included. Hold Specimen [facility] 12/03/2023 9:31 AM CDT RH LABORATORY Blood BLOOD SPECIMEN / Unknown Venipuncture / Unknown 12/03/2023 8:14 AM CDT 12/03/2023 8:21 AM CDT Cj Holcomb MD LAB - BLOOD ORDERABLES Fi nal Result Performing Organization Address [facility]/ZIP Co de Phone Number [facility] Care Lab [address] Lab (1st floor, no room number) [address] * Extra Red Top Tube (12/03/2023 8:14 AM CDT) Hold Specimen [facility] 12/03/2023 9:31 AM CDT RH LABORATORY Blood BLOOD SPECIMEN / Unknown Venipuncture / Unknown 12/03/2023 8:14 AM CDT 12/03/2023 8:22 AM CDT Cj Holcomb MD LAB - BLOOD ORDERABLES Fi nal Result [facility] [address] Lab (1st floor, no room number) [address] * Extra Blue Top Tube (12/03/2023 8:14 AM CDT) Hold Specimen [facility] 12/03/2023 9:31 AM CDT RH LABORATORY Blood BLOOD SPECIMEN / Unknown Venipuncture / Unknown 12/03/2023 8:14 AM CDT 12/03/2023 8:21 AM CDT Cj Holcomb MD LAB - BLOOD ORDERABLES Fi nal Result LABORATORY [facility] Acute Care Lab [address] Lab (1st floor, no room number) [place] [address] * (ABNORMAL) RBC and Platelet Morphology [...] - BLOOD ORDERABLES Fi nal Result LABORATORY [facility] Acute Care Lab [address] Lab (1st floor, no room number) [place] [address] * (ABNORMAL) CBC with platelets and [...] 0.0 <=0.4 10e3/uL 12/03/2023 11:35 AM CDT LABORATORY Absolute NRBCs 0.0 10e3/uL 12/03/2023 11:35 AM CDT LABORATORY Blood BLOOD SPECIMEN / Unknown Venipuncture / Unknown 12/03/2023 8:14 AM CDT 12/03/2023 8:22 AM CDT Cj Holcomb MD LAB - BLOOD ORDERABLES Fi nal Result LABORATORY [facility] Care Lab [address] Lab (1st floor, no room number) [place] [address] * Troponin T, High Sensitivity (12/03/2023 8:14 AM CDT) [facility] Troponin T, High Sensitivity <6 <=14 ng/L [...] - BLOOD ORDERABLES Fi nal Result LABORATORY [facility] Acute Care Lab [address] Lab (1st floor, no room number) [place] [address] * (ABNORMAL) Basic metabolic panel (BMP) [...] - BLOOD ORDERABLES Fi nal Result LABORATORY [facility] Acute Care Lab [address] Lab (1st floor, no room number) [place] [address], [place] from Last 3 Months Insurance [employer] OUT OF STATE [employer] OUT OF STATE Advance Directives For more information, please contact: [phone] * Full Code (Latest Code Status on File) Date Activated Date Inactivated Comments 09/12/2017 5:32 PM 09/13/2017 12:05 PM Care Teams Associate Product Manager Relationship Specialty Start Date End Date Yajaira Woo MD [facility] & [address] [address] PCP - General Family Medicine 12/03/23
== END 2024-01-04 08:01 | disposition home or self-care (01) ==
LOC: NFLDREF 01-05 14:32
PROVIDERS: PCP Family Medicine; Referring Provider Family Medicine; Visit Provider Family Medicine
DX: R71.8 Other abnormality of red blood cells (principal); D50.0 Iron deficiency anemia secondary to blood loss (chronic); D50.9 Iron deficiency anemia, unspecified
CPT/HCPCS: 80076

== ENCOUNTER 2024-05-16 09:47 | Outpatient (CLI) | payer BC, SELFPAY | END 2024-05-16 09:48 | disposition home or self-care (01) | PROVIDERS: PCP Family Medicine; Visit Provider Family Medicine | DX: E28.2 Polycystic ovarian syndrome (principal); E78.5 Hyperlipidemia, unspecified; R53.83 Other fatigue; E55.9 Vitamin D deficiency, unspecified; D50.0 Iron deficiency anemia secondary to blood loss (chronic) | CPT/HCPCS: 80053; 80061; 82607; 82728; 83540; 83550 ==

== ENCOUNTER 2024-09-19 08:37 | Outpatient (CLI) | payer BC, SELFPAY | END 2024-09-19 08:38 | disposition home or self-care (01) | LOC: NFLDREF 09-23 14:34 | PROVIDERS: PCP Family Medicine; Referring Provider Family Medicine; Visit Provider Family Medicine | DX: Z00.00 Encounter for general adult medical examination without abnormal findings (principal); E53.8 Deficiency of other specified B group vitamins; D50.0 Iron deficiency anemia secondary to blood loss (chronic) | CPT/HCPCS: 82607; 82728; 83540; 83550 ==